=== PATIENT | female | born 1980 | race American Indian/Alaskan Native ===

== ENCOUNTER 2020-07-20 01:09 | Inpatient (IN) | payer MEDICAID, OTHER ==
[2020-07-20] MEDS ORDERED: MORPHINE 4 MG/1 ML INJ IV ONE (01:19)
[2020-07-20] MEDS ORDERED: SODIUM CHLORIDE 0.9% 1000 ML 1,000 ML IV ONE (01:19)
[2020-07-20] MEDS ORDERED: ONDANSETRON 4 MG/2 ML INJ IV ONE (01:19)
--- NOTE | 2020-07-20 01:22 | Event Note ---
ED Screening Note Date of service: 07/20/20 Time: 01:20 ED Screening Note: 40-year-old -[place] female presents emergency room for sharp right upper quadrant abdominal pain that radiates to her back. Patient suffered from nausea and vomiting. Reports her pain is a 10 out of 10. Last menstrual period was 07/06/2020. Pain started yesterday progressive gotten worse. This initial assessment/diagnostic orders/clinical plan/treatment(s) is/are subject to change based on patients health status, clinical progression and re- assessment by fellow clinical providers in the ED. Further treatment and workup at subsequent clinical providers discretion. Patient/guardian urged not to elope from the ED as their condition may be serious if not clinically assessed and managed. Initial orders include:
--- NOTE | 2020-07-20 01:39 | Emergency Department Report ---
ED General Adult HPI - General Chief complaint: Abdominal Pain Stated complaint: ABD PAIN PUI?: No Time Seen by Provider: 07/20/20 01:37 Source: patient, EMS, RN notes reviewed Mode of arrival: Wheelchair Limitations: Physical Limitation - History of Present Illness Initial comments: The patient was evaluated in the emergency department for symptoms described in the history of present illness. He/she was evaluated in the context of the global COVID-19 pandemic, which necessitated consideration that the patient might be at risk for infection with the virus that causes COVID-19. Institutional protocols and algorithms that pertain to the evaluation of patients at risk for COVID-19 are in a state of rapid change based on i nformation released by regulatory bodies including the CDC and federal and state organizations. These policies and algorithms were followed during the patient's care in the emergency department. Please note that these policies, procedures and recommendations changed on a rapid basis. During the history and physical examination, I am chaperoned by nurse:SANDHYA JONES This is a 40-year-old female. She is not known to myself previously. She presents to the ER with a complaint of right upper quadrant pain that radiates to the back. This is been going on for 2 days. Positive nausea. She is never had pain like this before. No loss of taste or smell. No fever. No chest pain. No shortness of breath. No urinary symptoms. States she is not . The pain is sharp, increases with palpation, decreases with rest and with morphine. Patient 5, para 3, status post 1 elective termination of , and one miscarriage. She does not have a primary [employer] physician. -: Gradual, days(s) Location: abdomen Radiation: back Quality: stabbing, aching, sharp Consistency: constant Improves with: medication Worsens with: other (Movement and palpation) - Related Data Allergies Allergy/AdvReac Type Severity Reaction Status Date / Time No Known Allergies Allergy Verified 07/20/20 03:21 ED Review of Systems ROS: Stated complaint: ABD PAIN Other details as noted in HPI Constitutional: denies: fever Eyes: denies: eye discharge ENT: denies: epistaxis Respiratory: denies: cough Cardiovascular: denies: chest pain Gastrointestinal: abdominal pain, nausea Genitourinary: denies: dysuria Musculoskeletal: back pain Neurological: weakness Psychiatric: anxiety Hematological/Lymphatic: denies: easy bleeding ED Past Medical Hx - Past Medical History Previous Medical History?: No - Surgical History Past Surgical History?: No - Social History Smoking Status: Never Smoker ED Physical Exam - General Limitations: No Limitations General appearance: alert, anxious, in distress, obese - Head Head exam: Present: atraumatic, normocephalic - Eye Eye exam: Present: normal appearance, EOMI. Absent: nystagmus - ENT ENT exam: Present: normal exam, normal orophraynx, mucous membranes moist, normal external ear exam - Neck Neck exam: Present: normal inspection, full ROM. Absent: tenderness, meningismus - Respiratory Respiratory exam: Present: normal lung sounds bilaterally. Absent: respiratory distress, wheezes, rales, rhonchi, stridor, decreased breath sounds - Cardiovascular Cardiovascular Exam: Present: regular rate, normal rhythm, normal heart sounds. Absent: bradycardia, tachycardia, irregular rhythm, systolic murmur, diastolic murmur, rubs, gallop - GI/Abdominal GI/Abdominal exam: Present: soft, tenderness, guarding, other (Right upper quadrant tenderness. Right upper quadrant guarding.). Absent: distended, rebound, rigid, pulsatile mass - Extremities Exam Extremities exam: Present: normal inspection, full ROM, other (2+ pulses noted in the bilateral upper and lower extremities. There is no palpable cord. negative Homans sign. Muscular compartments are soft. The pelvis is stable.). Absent: pedal edema, calf tenderness - Back Exam Back exam: Present: normal inspection, full ROM. Absent: tenderness, CVA t enderness (R), CVA tenderness (L), paraspinal tenderness, vertebral tenderness - Neurological Exam Neurological exam: Present: alert, other (No facial droop. Tongue midline. Extraocular movements intact bilaterally. Facial sensation intact to light touch in V1, V2, V3 distribution bilaterally. 5 and a 5 strength in 4 extremities. Sensation intact to light touch in 4 extremities.) - Psychiatric Psychiatric exam: Present: anxious - Skin Skin exam: Present: warm, dry, intact, normal color. Absent: rash ED Course Vital Signs 07/20/20 07/20/20 07/20/20 01:44 01:46 02:00 Temperature Pulse Rate 56 L 58 L 61 Respiratory 13 15 11 L Rate Blood Pressure 162/106 O2 Sat by Pulse 100 100 100 Oximetry 07/20/20 07/20/2007/20/21 02:16 02:30 02:41 Temperature 97.1 F L Pulse Rate 49 L 58 L Respiratory 15 21 Rate Blood Pressure 171/84 167/92 O2 Sat by Pulse 100 100 Oximetry 07/20/20 07/20/20 07/20/20 02:46 03:00 03:16 Temperature Pulse Rate 57 L 74 Respiratory 22 19 14 Rate Blood Pressure 167/92 143/107 143/107 O2 Sat by Pulse 100 100 100 Oximetry 07/20/20 07/20/20 07/20/20 03:30 03:46 04:00 Temperature Pulse Rate Respiratory 16 11 L 11 L Rate Blood Pressure 143/107 145/86 148/89 O2 Sat by Pulse 100 100 100 Oximetry 07/20/20 04:16 Temperature Pulse Rate Respiratory Rate Blood Pressure 148/89 O2 Sat by Pulse 100 Oximetry - Reevaluation(s) Reevaluation #1: 07/20/20 02:23 Differential diagnosis, including but not limited to: Biliary colic, cholecystitis, pancreatitis, renal colic, pyelonephritis, colitis, diverticulitis, perforated viscus, Assessment and plan: 40-year-old female with a complaint of a right upper quadrant pain that radiates to the back with nausea. Suspicious for biliary colic. We will check appropriate laboratory studies, including test, EKG, right upper quadrant ultrasound, urinalysis, CT scan of the abdomen pelvis, assuming patient is not , and reassess. Patient improved after morphine, have discussed this plan of care with the patient, she has verbalized understanding, and she is amenable to this plan of care. 07/20/20 03:53 Laboratory studies are reviewed and appreciated. CT scan abdomen pelvis suggests corpus luteum cyst, with retroperitoneal hemorrhage, and intraper itoneal hemorrhage, with no significant extravasation as per the interpreting radiologist. Patient still having significant pain. Additional pain medication ordered. We have recommended admission for serial abdominal exams, serial CBCs, and pain control. Patient is amenable to this plan of care. Have contacted associate professor of criminal justice on-call, Dr. Espinosa, have discussed the patient's history, physical, laboratory studies, imaging findings, she is in agreement with this plan of care, and agrees to admit the patient to her service ED Medical Decision Making - Lab Data Result diagrams: 07/20/20 01:23 07/20/20 01:23 Vital Signs 03/15/21 01:46 Pulse Rate 58 L Respiratory 15 Rate O2 Sat by Pulse 100 Oximetry Lab Results 07/20/20 Range/Units 01:23 WBC 12.4 H (4.5-11.0) K/mm3 RBC 4.37 (3.65-5.03) M/mm3 Hgb 14.3 (10.1-14.3) gm/dl Hct 41.9 (30.3-42.9) % MCV 96 (79-97) fl MCH 33 H (28-32) pg MCHC 34 (30-34) % RDW 14.0 (13.2-15.2) % Plt Count 223 (140-440) K/mm3 Lymph % (Auto) 22.7 (13.4-35.0) % [place] % (Auto) 9.4 H (0.0-7.3) % Eos % (Auto) 0.5 (0.0-4.3) % Baso % (Auto) 0.4 (0.0-1.8) % Lymph # (Auto) 2.8 (1.2-5.4) K/mm3 [place] # (Auto) 1.2 H (0.0-0.8) K/mm3 Eos # (Auto) 0.1 (0.0-0.4) K/mm3 Baso # (Auto) 0.0 (0.0-0.1) K/mm3 Seg Neutrophils % 67.0 (40.0-70.0) % Seg Neutrophils # 8.3 H (1.8-7.7) K/mm3 Vital Signs 07/20/20 07/20/20 07/20/20 01:44 01:46 02:00 Temperature Pulse Rate 56 L 58 L 61 Respiratory 13 15 11 L Rate Blood Pressure 162/106 O2 Sat by Pulse 100 100 100 Oximetry 07/20/20 07/20/20 07/20/20 02:16 02:30 02:41 Temperature 97.1 F L Pulse Rate 49 L 58 L Respiratory 15 21 Rate Blood Pressure 171/84 167/92 O2 Sat by Pulse 100 100 Oximetry Lab Results 07/20/20 07/20/20 07/20/20 Range/Units 01:23 01:23 01:23 WBC 12.4 H (4.5-11.0) K/mm3 RBC 4.37 (3.65-5.03) M/mm3 Hgb 14.3 (10.1-14.3) gm/dl Hct 41.9 (30.3-42.9) % MCV 96 (79-97) fl MCH 33 H (28-32) pg MCHC 34 (30-34) % RDW 14.0 (13.2-15.2) % Plt Count 223 (140-440) K/mm3 Lymph % (Auto) 22.7 (13.4-35.0) % [place] % (Auto) 9.4 H (0.0-7.3) % Eos % (Auto) 0.5 (0.0-4.3) % Baso % (Auto) 0.4 (0.0-1.8) % Lymph # (Auto) 2.8 (1.2-5.4) K/mm3 [place] # (Auto) 1.2 H (0.0-0.8) K/mm3 Eos # (Auto) 0.1 (0.0-0.4) K/mm3 Baso # (Auto) 0.0 (0.0-0.1) K/mm3 Seg Neutrophils % 67.0 (40.0-70.0) % Seg Neutrophils # 8.3 H (1.8-7.7) K/mm3 PT (12.2-14.9) Sec. INR (0.87-1.13) Sodium 138 (137-145) mmol/L Potassium 3.3 L (3.6-5.0) mmol/L Chloride 101.1 (98-107) mmol/L Carbon Dioxide 25 (22-30) mmol/L Anion Gap 15 mmol/L BUN 16 (7-17) mg/dL Creatinine 0.8 (0.6-1.2) mg/dL Estimated GFR > 60 ml/min BUN/Creatinine Ratio 20 % Glucose 165 H (65-100) mg/dL Calcium 9.2 (8.4-10.2) mg/dL Magnesium (1.7-2.3) mg/dL Total Bilirubin 0.50 (0.1-1.2) mg/dL AST 19 (5-40) units/L ALT 12 (7-56) units/L Alkaline Phosphatase 59 (35-129) units/L Total Creatine Kinase (30-135) units/L Total Protein 7.2 (6.3-8.2) g/dL Albumin 4.1 (3.9-5) g/dL Albumin/Globulin Ratio 1.3 % Lipase 31 (13-60) units/L HCG, Quant < 2 (0-4) mIU/mL Urine Color (Yellow) Urine Turbidity (Clear) Urine pH (5.0-7.0) Ur Specific [place] (1.003-1.030) Urine Protein (Negative) mg/dL Urine Glucose (UA) (Negative) mg/dL Urine Ketones (Negative) mg/dL Urine Blood (Negative) Urine Nitrite (Negative) Urine Bilirubin (Negative) Urine Urobilinogen (<2.0) mg/dL Ur Leukocyte Esterase (Negative) Urine WBC (Auto) (0.0-6.0) /HPF Urine RBC (Auto) (0.0-6.0) /HPF U Epithel Cells (Auto) (0-13.0) /HPF Urine Bacteria (Auto) (Negative) /HPF Hyaline Casts /LPF Urine Mucus /HPF 07/20/20 07/20/20 07/20/20 Range/Units 01:47 01:47 01:54 WBC (4.5-11.0) K/mm3 RBC (3.65-5.03) M/mm3 Hgb (10.1-14.3) gm/dl Hct (30.3-42.9) % MCV (79-97) fl MCH (28-32) pg MCHC (30-34) % RDW (13.2-15.2) % Plt Count (140-440) K/mm3 Lymph % (Auto) (13.4-35.0) % [place] % (Auto) (0.0-7.3) % Eos % (Auto) (0.0-4.3) % Baso % (Auto) (0.0-1.8) % Lymph # (Auto) (1.2-5.4) K/mm3 [place] # (Auto) (0.0-0.8) K/mm3 Eos # (Auto) (0.0-0.4) K/mm3 Baso # (Auto) (0.0-0.1) K/mm3 Seg Neutrophils % (40.0-70.0) % Seg Neutrophils # (1.8-7.7) K/mm3 PT 13.2 (12.2-14.9) Sec. INR 1.01 (0.87-1.13) Sodium (137-145) mmol/L Potassium (3.6-5.0) mmol/L Chloride (98-107) mmol/L Carbon Dioxide (22-30) mmol/L Anion Gap mmol/L BUN (7-17) mg/dL Creatinine (0.6-1.2) mg/dL Estimated GFR ml/min BUN/Creatinine Ratio % Glucose (65-100) mg/dL Calcium (8.4-10.2) mg/dL Magnesium 2.00 (1.7-2.3) mg/dL Total Bilirubin (0.1-1.2) mg/dL AST (5-40) units/L ALT (7-56) units/L Alkaline Phosphatase (35-129) units/L Total Creatine Kinase 276 H (30-135) units/L Total Protein (6.3-8.2) g/dL Albumin (3.9-5) g/dL Albumin/Globulin Ratio % Lipase (13-60) units/L HCG, Quant (0-4) mIU/mL Urine Color Yellow (Yellow) Urine Turbidity Clear (Clear) Urine pH 5.0 (5.0-7.0) Ur Specific [place] 1.032 H (1.003-1.030) Urine Protein 30 mg/dl (Negative) mg/dL Urine Glucose (UA) Neg (Negative) mg/dL Urine Ketones 20 (Negative) mg/dL Urine Blood Neg (Negative) Urine Nitrite Neg (Negative) Urine Bilirubin Neg (Negative) Urine Urobilinogen 2.0 (<2.0) mg/dL Ur Leukocyte Esterase Neg (Negative) Urine WBC (Auto) 3.0 (0.0-6.0) /HPF Urine RBC (Auto) 2.0 (0.0-6.0) /HPF U Epithel Cells (Auto) 6.0 (0-13.0) /HPF Urine Bacteria (Auto) 1+ (Negative) /HPF Hyaline Casts 1 /LPF Urine Mucus 3+ /HPF - EKG Data -: EKG Interpreted by Vt EKG shows normal: sinus rhythm Rate: bradycardia - EKG Data When compared to previous EKG there are: previous EKG unavailable 07/20/20 02:42 Sinus rhythm, 55 bpm, normal axis, QTC 445 ms, low voltage, not a STEMI. No prior for comparison. Time of interpretation, 2:3 5 AM - Radiology Data Radiology results: pending, report reviewed, image reviewed CT abdomen pelvis w con INDICATION: Right upper quadrant pain that radiates to the donita. COMPARISON: None TECHNIQUE: Abdominal and pelvic CT exam performed. All CT scans at this location are performed using CT dose reduction for ALARA by means of automated exposure control. FINDINGS: CT ABDOMEN and PELVIS: Lung Bases: Dependent atelectasis. Liver: No significant abnormality. Biliary: No significant abnormality. Spleen: No significant abnormality. Pancreas: No significant abnormality. Adrenals: No significant abnormality. Kidneys: No significant abnormality. Lymphatics: No lymphadenopathy. Vasculature: No significant abnormality. Bowel: No significant abnormality. Pelvis: Moderate quantity of peritoneal and retroperitoneal hemorrhage. There is a peripherally enhancing right ovarian lesion. 7 mm consultations seen in the left adnexa. Osseous Structures: No aggressive osseous lesion. Additional Findings: None IMPRESSION: 1. Moderate quantity of hemoperitoneum from right corpus luteal cyst rupture. Signer Name: Torres Britton MD Signed: 07/20/2020 2:28 AM Workstation Name: [id number] Critical care attestation.: If time is entered above; I have spent that time in minutes in the direct care of this critically ill patient, excluding procedure time. ED Disposition Clinical Impression: Right upper quadrant abdominal pain, Hypokalemia, Hemoperitoneum, Ovarian cyst, Retroperitoneal bleed Disposition: 09 OP ADMIT IP TO THIS HOSP Is pt being admited?: Yes Does the pt Need Aspirin: No Condition: Good
[2020-07-20 01:49] LABS: Basophils % (Auto) 0.4 % (0.0-1.8); Eosinophils # (Auto) 0.1 K/mm3 (0.0-0.4); Eosinophils % (Auto) 0.5 % (0.0-4.3); Hematocrit 41.9 % (30.3-42.9); Hemoglobin 14.3 gm/dl (10.1-14.3); Lymphocytes # (Auto) 2.8 K/mm3 (1.2-5.4); Lymphocytes % (Auto) 22.7 % (13.4-35.0); Mean Corpuscular HGB Conc 34 % (30-34); Mean Corpuscular Volume 96 fl (79-97); Monocytes # (Auto) 1.2 K/mm3 (0.0-0.8); Monocytes % (Auto) 9.4 % (0.0-7.3); Platelet Count 223 K/mm3 (140-440); Red Blood Count 4.37 M/mm3 (3.65-5.03)
[2020-07-20 02:24] LABS: Bacteria,Urine 1+ /HPF (Negative); Bilirubin,Urine NEG (Negative); Blood,Urine NEG (Negative); Color,Urine Yellow (Yellow); Hyaline Casts,Urine 1 /LPF; Mucus,Urine 3+ /HPF
[2020-07-20 02:48] LABS: Alanine Aminotransferase 12 units/L (7-56); Albumin 4.1 g/dL (3.9-5); BUN/Creatinine Ratio 20; Blood Urea Nitrogen 16 mg/dL (7-17); Calcium 9.2 mg/dL (8.4-10.2); Hemolysis Index 2
[2020-07-20 02:51] LABS: INR 1.01 (0.87-1.13)
[2020-07-20] MEDS ORDERED: POTASSIUM CHLORIDE ER 20 MEQ TAB PO ONE (03:16)
--- NOTE | 2020-07-20 03:33 | Cat Scan Report ---
CT abdomen pelvis w con INDICATION: Right upper quadrant pain that radiates to the donita. COMPARISON: None TECHNIQUE: Abdominal and pelvic CT exam performed. All CT scans at this location are performed using CT dose reduction for ALARA by means of automated exposure control. FINDINGS: CT ABDOMEN and PELVIS: Lung Bases: Dependent atelectasis. Liver: No significant abnormality. Biliary: No significant abnormality. Spleen: No significant abnormality. Pancreas: No significant abnormality. Adrenals: No significant abnormality. Kidneys: No significant abnormality. Lymphatics: No lymphadenopathy. Vasculature: No significant abnormality. Bowel: No significant abnormality. Pelvis: Moderate quantity of peritoneal and retroperitoneal hemorrhage. There is a peripherally enhan cing right ovarian lesion. 7 mm consultations seen in the left adnexa. Osseous Structures: No aggress kasey osseous lesion. Additional Findings: None IMPRESSION: 1. Moderate quantity of hemoperitoneum from right corpus luteal cyst rupture. Signer Name: Torres Britton MD Signed: 07/20/2020 3:28 AM Workstation Name: [id number]
[2020-07-20] MEDS ORDERED: HYDROmorphone 1 MG/1 ML INJ IV ONE (03:41)
[2020-07-20] MEDS: POTASSIUM CHLORIDE 10 MEQ 10 MEQ/100 ML BAG IV SCH ×2 (04:05→07:20)
--- NOTE | 2020-07-20 05:22 | History and Physical Report ---
History of Present Illness Date of examination: 07/20/20 Date of admission: 07/20/20 03:50 Chief complaint: Acute abdominal pain Ruptured right corpus luteal cyst: Hemodynamically stable History of present illness: 40-year-old admitted for observation with Acute right upper quadrant pain. CT scan significant for ruptured right corpus luteal cyst with retroperitoneal hemorrhage. Admission hemoglobin 14.3 VSS: Pulse 74 Patient received 2 doses of IV pain medication in the emergency room with minimal pain relief. Past History Past Surgical History: no surgical history Social history: no significant social history Medications and Allergies Allergies Allergy/AdvReac Type Severity Reaction Status Date / Time No Known Allergies Allergy Verified 07/20/20 03:21 Active Meds: Active Medications Potassium Chloride (Kcl 10meq/100ml) 10 meq in 100 mls @ 100 mls/hr IV Q1H BERNARD Stop: 07/20/20 05:59 Last Admin: 07/20/20 04:05 Dose: 100 mls/hr Documented by: Review of Systems All systems: negative (See HPI) - Vital Signs Vital signs: Vital Signs Pulse Resp Pulse Ox 56 L 13 100 07/20/20 01:44 07/20/20 01:44 07/20/20 01:44 Temp Pulse Resp BP Pulse Ox 97.1 F L 74 11 L 146/108 98 07/20/20 02:41 07/20/20 03:00 07/20/20 04:00 07/20/20 04:30 07/20/20 04:30 - Physical Exam Breasts: Positive: deferred Cardiovascular: Regular rate Lungs: Positive: Clear to auscultation Abdomen: Positive: normal appearance, soft, normal bowel sounds Extremities: Positive: normal Deep Tendon Reflex Grade: Normal +2 Results Result Diagrams: 07/20/20 01:23 07/20/20 01:23 Abnormal lab results 07/20/20 07/20/20 07/20/20 Range/Units 01:23 01:23 01:47 WBC 12.4 H (4.5-11.0) K/mm3 MCH 33 H (28-32) pg [place] % (Auto) 9.4 H (0.0-7.3) % [place] # (Auto) 1.2 H (0.0-0.8) K/mm3 Seg Neutrophils # 8.3 H (1.8-7.7) K/mm3 Potassium 3.3 L (3.6-5.0) mmol/L Glucose 165 H (65-100) mg/dL Total Creatine Kinase 276 H (30-135) units/L Ur Specific [place] (1.003-1.030) 07/20/20 Range/Units 01:54 WBC (4.5-11.0) K/mm3 MCH (28-32) pg [place] % (Auto) (0.0-7.3) % [place] # (Auto) (0.0-0.8) K/mm3 Seg Neutrophils # (1.8-7.7) K/mm3 Potassium (3.6-5.0) mmol/L Glucose (65-100) mg/dL Total Creatine Kinase (30-135) units/L Ur Specific [place] 1.032 H (1.003-1.030) All other labs normal. Assessment and Plan Admit for observation Pain meds. Repeat H&H in a.m. Hemodynamically stable Consider Medrol Dosepak as outpatient Milo Espinosa MD
--- NOTE | 2020-07-20 05:46 | Ultrasound Report ---
US abdomen limited INDICATION: ruq pain COMPARISON: None. FINDINGS: Pancreas: No significant abnormality identified in the visualized portions of the pancreas. Abdominal aorta: No significant abnormality. IVC: Normal. Liver: No significant abnormality. Gallbladder: No gallstones, gallbladder wall thickening, or pericholecystic fluid. Bile ducts: The common bile duct measures 2 mm. Additional findings: No significant additional findings. IMPRESSION: No significant sonographic abnormality. Signer Name: Torres Britton MD Signed: 07/20/2020 5:41 AM Workstation Name: [id number]
[2020-07-20] MEDS: ONDANSETRON 4 MG/2 ML INJ IV PRN ×2 (06:22→20:08)
[2020-07-20] MEDS: MORPHINE 2 MG/1 ML INJ IV PRN ×2 (06:23→10:22)
[2020-07-20 07:42] LABS: Hematocrit 40.7 % (30.3-42.9); Hemoglobin 13.8 gm/dl (10.1-14.3)
[2020-07-20] MEDS: HYDROcodone/ACETAMINOPHEN 5-325 MG TAB PO PRN ×2 (08:34→15:51)
[2020-07-20 08:50] LABS: BUN/Creatinine Ratio 15; Blood Urea Nitrogen 12 mg/dL (7-17); Calcium 8.7 mg/dL (8.4-10.2); Hemolysis Index 6
[2020-07-20] MEDS ORDERED: FLU VACC QUAD 2020-2021 (6 months +)/PF 60 0.5 ML SYRINGE IM ONE (12:00)
--- NOTE | 2020-07-20 12:26 | Progress Note ---
Assessment and Plan - Patient Problems (1) Hypokalemia Current Visit: Yes Status: Acute (2) Ovarian cyst Current Visit: Yes Status: Acute Qualifiers: Laterality: right Qualified Code(s): N83.201 - Unspecified ovarian cyst, right side Plan to address problem: Small 0.7 mm R corpus luteum cyst with rupture, moderate hemoperitoneum noted --Improving with pain management --Continue to monitor --Dispo pending improving of symptoms. Consider making patient NPO for diagnostic scope if pain persistent Subjective - Subjective Date of service: 07/20/20 Principal diagnosis: R corpus lutueal cyst Interval history: Patient reports that pain has been persistent, but improving. Right sided. Reports hx of dysmenorrhea with irregular menses, but reports that pain is different. Denies urinary or bowel complaints. Objective - Vital Signs Latest vital signs: Vital Signs Temp Pulse Resp BP BP Pulse Ox 07/20/20 09:03 97.9 F 55 L 18 137/82 98 07/20/20 05:10 97.9 F 50 L 20 135/87 98 07/20/20 04:30 146/108 98 07/20/20 04:16 148/89 100 07/20/20 04:00 11 L 148/89 100 07/20/20 03:46 11 L 145/86 100 07/20/20 03:30 16 143/107 100 07/20/20 03:16 14 143/107 100 07/20/20 03:00 74 19 143/107 100 07/20/20 02:46 57 L 22 167/92 100 07/20/20 02:41 97.1 F L 07/20/20 02:30 58 L 21 167/92 100 07/20/20 02:16 49 L 15 171/84 100 07/20/20 02:00 61 11 L 162/106 100 07/20/20 01:46 58 L 15 100 07/20/20 01:44 56 L 13 100 Intake and Output 07/19/20 07/20/20 07/20/20 23:59 07:59 15:59 Other: Voiding Method Toilet # Voids Void 1 Weight 83.915 kg Patient Weight 07/20/20 23:59 Weight 83.915 kg - Exam Abdomen: Present: normal appearance, normal bowel sounds, other (discomfort in RLQ, no rebound) - Labs Labs: Abnormal lab results 07/20/20 07/20/20 07/20/20 Range/Units 01:23 01:23 01:47 WBC 12.4 H (4.5-11.0) K/mm3 MCH 33 H (28-32) pg [place] % (Auto) 9.4 H (0.0-7.3) % [place] # (Auto) 1.2 H (0.0-0.8) K/mm3 Seg Neutrophils # 8.3 H (1.8-7.7) K/mm3 Potassium 3.3 L (3.6-5.0) mmol/L Glucose 165 H (65-100) mg/dL Total Creatine Kinase 276 H (30-135) units/L Ur Specific [place] (1.003-1.030) 07/20/20 07/20/20 Range/Units 01:54 07:16 WBC (4.5-11.0) K/mm3 MCH (28-32) pg [place] % (Auto) (0.0-7.3) % [place] # (Auto) (0.0-0.8) K/mm3 Seg Neutrophils # (1.8-7.7) K/mm3 Potassium (3.6-5.0) mmol/L Glucose 120 H (65-100) mg/dL Total Creatine Kinase (30-135) units/L Ur Specific [place] 1.032 H (1.003-1.030)
[2020-07-20] MEDS: HYDROmorphone 1 MG/1 ML INJ IV PRN ×3 (13:00→20:13)
--- NOTE | 2020-07-20 17:56 | Event Note ---
Date: 07/20/20 Went to reassess patient in PM. Patient reports that she is slowly improving. Reports concern because her sister almost because of cyst in fallopian tube (ectopic ) however expressed that this was a different issue than she is currently having. Pain likely 2/2 to irritation of hemoperitoneum. Patient has been moving around well. Able to stand up and urinate without difficulty. Tolerating po without issue GEN NAD Abd soft, dicomfort in RLQ, no rebound or guarding, no peritoneal signs. A/P: hx ruptured corpus luteum with moderate hemoperitoneum. Overall reassuring exam. No acute indication for surgical management. Continue to repeat abdominal exams --NPO after midnight prior to next reassessment tomorrow AM. Unlikely surgical candidate at this time, but will reassess in AM --Pain management --Continue to monitor
[2020-07-21] MEDS: HYDROmorphone 1 MG/1 ML INJ IV PRN ×4 (03:01→15:36)
[2020-07-21] MEDS: ONDANSETRON 4 MG/2 ML INJ IV PRN ×2 (03:06→09:07)
[2020-07-21] MEDS ORDERED: medroxyPROGESTERone ACETATE 150 MG/ML SYRINGE IM NR (08:59)
--- NOTE | 2020-07-21 09:06 | Progress Note ---
Assessment and Plan d./c home Milo Espinosa MD Subjective - Subjective Date of service: 07/21/20 Principal diagnosis: R corpus lutueal cyst Interval history: pain controlled Hbstab;e meets dischrage criteria PE benign, VSS, no acute abdomen depo proverax1 dose prior to discharge follow up 3 weeks outpatient Milo Espinosa MD Patient reports: appetite normal, pain well controlled, ambulating normally Objective - Vital Signs Latest vital signs: Vital Signs Temp Pulse Resp BP BP Pulse Ox 07/21/20 07:26 98.1 F 58 L 18 112/73 100 07/21/20 06:27 98 F 67 18 109/75 100 07/21/20 03:01 20 07/21/20 01:28 98.1 F 58 L 16 104/62 96 07/20/20 21:23 98.0 F 55 L 16 129/75 100 07/20/20 20:13 20 07/20/20 17:24 98.0 F 56 L 16 112/63 98 Intake and Output 07/20/20 07/21/20 07/21/20 23:59 07:59 15:59 Intake Total 120 240 0 Output Total 300 300 Balance -180 -60 0 Intake: Oral 0 Intake, Free Water 120 240 Output: Urine 300 300 Void 300 300 Other: Total, Intake Amount 0 Total, Output Amount 300 300 # Voids Void 1 - Exam Breasts: Present: normal Cardiovascular: Present: Regular rate Abdomen: Present: normal appearance, normal bowel sounds Extremities: Present: normal Deep Tendon Reflex Grade: Normal +2
--- NOTE | 2020-07-21 09:11 | Discharge Summary ---
Providers - Providers Date of Admission: 07/20/20 03:50 Date of discharge: 07/21/20 Attending physician: RICHIE FERREIRA MD Primary care physician: DORI VOGEL MD Hospitalization Reason for admission: other (ruptured right corpus luteal cyst) Hospital course: ruptured right corpus luteal cyst admitted for pain control hb stable throughout 13.0-14.0 received Depo Rpvera prior to discharge follow up 3weeks Tierra Ferreira MD Condition at discharge: Stable Disposition: [id number] TO HOME OR SELFCARE Plan - Provider Discharge Summary Activity: routine Diet: routine Additional instructions: [] Smoking cessation referral if applicable(refer to patient education folder for contact #) [] Refer to [facility] Booklet Call your doctor immediately for: * Fever > 100.5 * Heavy vaginal bleeding ( >1 pad per hour) * Severe persistent headache * Shortness of breath * Reddened, hot, painful area to leg or breast * Drainage or odor from incision. * Keep incision clean and dry at all times and follow doctor's instructions regarding bathing/showering - Follow up plan Follow up: PRIMARY MD JASPREET [Primary Care Provider] - 14 Days
[2020-07-21] MEDS: HYDROcodone/ACETAMINOPHEN 5-325 MG TAB PO PRN (13:10)
[2020-07-21 13:28] VITALS: BP 106/72
[2020-07-21] MEDS ORDERED: FLU VACC QUAD 2020-2021 (6 months +)/PF 60 0.5 ML SYRINGE IM ONE (14:00)
== END 2020-07-21 18:05 | disposition home or self-care (01) | DRG 760 ==
LOC: ED 01:09 → OB 03:50 → OBSVTOIN 03:50
PROVIDERS: ADMIT Obstetrics & Gynecology; ATTEND Obstetrics & Gynecology
DX: N83.11 Corpus luteum cyst of right ovary (principal); K66.1 Hemoperitoneum; R58 Hemorrhage, not elsewhere classified; E87.6 Hypokalemia
CPT/HCPCS: 36415; 74177; 76705; 80048; 80053; 81001; 82550; 83690; 83735; 84702; 85014; 85018; 85025; 85610; 86850; 86900; 86901; 90686; 93005; 96365; 96375; G0378; J1050; J1170; J2270; J2405; J3480; J7030; Q9967